=== PATIENT | male | born 1990 | race Caucasian/White ===

== ENCOUNTER 2021-01-18 08:55 | Emergency (ER) | payer BC, OTHER ==
[2021-01-19 07:45] LABS: SARS-CoV-2 PCR by NAA DETECTED (NotDetected)
== END 2021-01-18 09:25 | disposition home or self-care (01) ==
LOC: BURERS 08:55
DX: U07.1 COVID-19 (principal); F17.210 Nicotine dependence, cigarettes, uncomplicated
CPT/HCPCS: 99283; U0003; U0005